=== PATIENT | female | born 1960 | race Caucasian/White ===

== ENCOUNTER 2017-08-31 07:30 | Emergency (ER) | payer BC ==
[~2017-08-31] VITALS: Ht 152.4 cm; Wt 72.3 kg
[2017-08-31 07:44] VITALS: BP 149/67
--- NOTE | 2017-08-31 07:46 | NUR ---
PT AMBULATES TO BED 5, REPORT GIVEN TO CHRISTIANO PERAZA
[2017-08-31] MEDS ORDERED: ALBUTEROL 0.083% 2.5 MG/3 ML NEBU INH ONE (07:55)
[2017-08-31] MEDS ORDERED: IPRATROPIUM 0.02% 0.5 MG/2.5 ML NEBU INH ONE (07:55)
[2017-08-31] MEDS ORDERED: predniSONE 20 MG TAB PO ONE (07:55)
--- NOTE | 2017-08-31 07:58 | NUR ---
PT COMES TO ER WITH C/O PRODUCTIVE COUGH, CHILLS, SORE THROAT AND FEVER X 8 DAYS. PT DENIES ANY CHEST PAIN. RESP EVEN AND UNLABORED, IN NAD. LS-ANKUR EXP WHEEZES. SKIN W/D/I. PT DENIES ANY NAUSEA/ABD PAIN. HX; DENIES RX; DENIES
--- NOTE | 2017-08-31 08:05 | NUR ---
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
--- NOTE | 2017-08-31 08:05 | NUR ---
RT AT BEDSIDE FOR BREATHING TX.
[2017-08-31 09:02] VITALS: BP 149/67
--- NOTE | 2017-08-31 09:02 | NUR ---
Patient discharged with v/s stable. Written and verbal after care instructions given and explained. Patient alert, oriented and verbalized understanding of instructions. Ambulatory with steady gait. All questions addressed prior to discharge. ID band removed. Patient advised to follow up with PMD. Rx of Prednisone and Albuterol given. Patient educated on indication of medication including possible reaction and side effects. Opportunity to ask questions provided and answered.
== END 2017-08-31 09:02 | disposition home or self-care (01) ==
LOC: MED 07:30
DX: J40 Bronchitis, not specified as acute or chronic (principal); R03.0 Elevated blood-pressure reading, without diagnosis of hypertension; Z90.49 Acquired absence of other specified parts of digestive tract
CPT/HCPCS: 94640; 99283; J7512; J7613; J7644

== ENCOUNTER 2018-09-14 12:57 | Emergency (ER) | payer BC, MEDICAID ==
[~2018-09-14] VITALS: Ht 162.6 cm; Wt 78.0 kg
--- NOTE | 2018-09-14 13:22 | NUR ---
PATIENT AMBULATED TO BED 5.
[2018-09-14 13:24] VITALS: BP 145/74
--- NOTE | 2018-09-14 13:24 | NUR ---
C/O BUG BITES X2 DAYS. PT HAS SMALL RED CLEANING ON BLE, LOWER BACK, AND BUE. PT DENEIS PAIN STATES THAT THEY ARE ITCHY. VSS. ER MD TO SEE PT. MEDHX:ASTHMA RX:NUBULIZER
[2018-09-14] MEDS ORDERED: DEXAMETHASONE 10 MG/ML VIAL IM ONE (13:55)
[2018-09-14] MEDS ORDERED: hydrOXYzine HCL 25 MG TAB PO ONE (13:55)
--- NOTE | 2018-09-14 14:23 | NUR ---
PO/IM MEDS GIVEN-NADR AT THIS TIME
[2018-09-14 14:51] VITALS: BP 140/72
--- NOTE | 2018-09-14 14:51 | NUR ---
Patient discharged with v/s stable. Written and verbal after care instructions given and explained. Patient alert, oriented and verbalized understanding of instructions. Ambulatory with steady gait. All questions addressed prior to discharge. ID band removed. Patient advised to follow up with PMD. Rx of ATARAX, PREDNISONE, AND BACTROBAN given. Patient educated on indication of medication including possible reaction and side effects. Opportunity to ask questions provided and answered.
== END 2018-09-14 14:51 | disposition home or self-care (01) ==
LOC: MED 12:57
DX: S80.862A Insect bite (nonvenomous), left lower leg, initial encounter (principal); S80.861A Insect bite (nonvenomous), right lower leg, initial encounter; S40.862A Insect bite (nonvenomous) of left upper arm, initial encounter; S40.861A Insect bite (nonvenomous) of right upper arm, initial encounter; L08.9 Local infection of the skin and subcutaneous tissue, unspecified; J44.9 Chronic obstructive pulmonary disease, unspecified; I10 Essential (primary) hypertension; E11.9 Type 2 diabetes mellitus without complications; W57.XXXA Bitten or stung by nonvenomous insect and other nonvenomous arthropods, initial encounter; Y93.89 Activity, other specified; Y92.89 Other specified places as the place of occurrence of the external cause; Y99.8 Other external cause status
CPT/HCPCS: 96372; 99283; J1100

== ENCOUNTER 2018-10-26 08:44 | Emergency (ER) | payer MEDICAID ==
[~2018-10-26] VITALS: Ht 160 cm; Wt 77.1 kg
--- NOTE | 2018-10-26 08:50 | NUR ---
Patient ambulated to bed 2. RN evaluating patient at bedside.
[2018-10-26 08:51] VITALS: BP 132/72
--- NOTE | 2018-10-26 08:54 | NUR ---
58/F BIB SELF c/o possible bug bite (spider) right forearm x LAST NIGHT. MED HX: depression, anxiety. SKIN IS PINK/WARM/DRY; PATIENT STATES PAIN OF 0/10 AT THIS TIME; PATIENT POSITIONED FOR COMFORT; HOB ELEVATED; BEDRAILS UP X1; BED DOWN. JENNIFER ANDRADE MADE AWARE OF PT STATUS. Addendum: 10/26/18 at 0908 by [email or web address] MED HX: CHOLECYSTECTOMY .
[2018-10-26 09:28] VITALS: BP 128/68
--- NOTE | 2018-10-26 09:28 | NUR ---
Patient discharged with v/s stable. Written and verbal after care instructions given and explained. Patient verbalized understanding. Ambulatory with steady gait. All questions addressed prior to discharge. Advised to follow up with PMD.
== END 2018-10-26 09:28 | disposition home or self-care (01) ==
LOC: MED 08:44
DX: T63.301A Toxic effect of unspecified spider venom, accidental (unintentional), initial encounter (principal); F41.9 Anxiety disorder, unspecified; F32.9 Major depressive disorder, single episode, unspecified; J44.9 Chronic obstructive pulmonary disease, unspecified; Z90.49 Acquired absence of other specified parts of digestive tract; Y92.89 Other specified places as the place of occurrence of the external cause
CPT/HCPCS: 99281